=== PATIENT | female | born 1945 | race Caucasian/White ===

== ENCOUNTER → 2017-12-21 15:33 | Outpatient (CLI) | payer MEDICARE, OTHER, SELFPAY | PROVIDERS: Family Provider Family Medicine; PCP Family Medicine; Visit Provider Otolaryngology Otolaryngology/Facial Plastic Surgery | DX: J32.9 Chronic sinusitis, unspecified (principal) | CPT/HCPCS: 87070; 87205 ==

== ENCOUNTER → 2018-01-05 09:58 | Outpatient (CLI) | payer MEDICARE, OTHER, SELFPAY ==
[2018-01-05 12:25] LABS: Absolute Lymphocyte Count 1.41 X10^3/ul (0.83-4.51); Absolute Neutrophil Count 3.6 X10^3/uL (2.0-7.7); Basophil# 0.02 X10^3/uL; Basophil% 0.3 % (0-1); Eosinophil# 0.16 X10^3/uL; Eosinophils% 2.8 % (0-5); Hematocrit 40.3 % (37-47); Hemoglobin 12.8 g/dl (12.0-15.0); Lymphocyte # 1.41 X10^3/ul (4.0); Lymphocyte % 24.7 % (19-41); Mean Corp Hgb Conc 31.8 g/gl (32-36); Mean Corpuscular Hgb 31.3 pg (27.0-32.0); Mean Corpuscular Volume 98.5 fL (81-99); Mean Platelet Vol. 11.3 fl (6.2-12.0); Monocyte# 0.51 X10^3/uL; Monocyte% 8.9 % (0-10); Neutrophil # 3.61 X10^3/uL (2.7-7.7); Neutrophil % 63.1 % (47-70); Platelet Count 200 K/mm3 (150-450); RBC Distribution Width CV 14.3 % (11.6-14.6); RBC Distribution Width SD 51.5 fl (35.1-43.9); Red Blood Count 4.09 M/mm3 (4.2-5.4); White Blood Count 5.7 K/mm3 (4.4-11.0)
[2018-01-05 12:36] LABS: POSITIVE COUNT NO; POSITIVE DIFFERENTIAL NO; POSITIVE MORPHOLOGY NO
[2018-01-05 12:37] LABS: Vitamin B12 982 pg/mL (211-911); Vitamin D,25 Hydroxy 62.5 ng/mL (29.95-100.01)
[2018-01-05 12:38] LABS: ALB/GLOB Ratio 0.9 RATIO (0.9-2.4); AST(SGOT) 23 U/L (15-37); Alanine Aminotransfer ALT/SGPT 29 U/L (13-56); Albumin, Serum 3.4 g/dL (3.2-5.0); Alkaline Phosphatase 53 U/L (45-117); Anion Gap 3 (5-15); BUN 25 mg/dL (7-18); Calcium,Total 8.5 mg/dL (8.5-10.1); Chloride 106 mmol/L (98-107); Cholesterol 222 mg/dL (200); Creatinine, Serum 0.72 mg/dL (0.55-1.02); EST Glomerular Filtration Rate 85 mL/min (>60); Est Glom Filt Rate - Afr Amer 103 mL/min (>60); Ferritin 21 ng/mL (8-252); Globulin 3.7 g/dL (2.2-4.2); Glucose 84 mg/dL (74-106); High Density Lipoprotein 117 mg/dL; Iron 122 ug/dL (50-170); Potassium 3.6 mmol/L (3.5-5.1); Protein, Total 7.1 g/dL (6.4-8.2); Sodium Level 141 mmol/L (136-145); Thyroid Stim Hormone (TSH) 6.46 uIU/mL (0.358-3.74); Triglycerides 58 mg/dL; Very Low Density Lipoprotein 12 mg/dL (5-40)
== END ==
PROVIDERS: Family Provider Family Medicine; PCP Family Medicine; Visit Provider Internal Medicine Cardiovascular Disease
DX: I10 Essential (primary) hypertension (principal); D50.9 Iron deficiency anemia, unspecified; E55.9 Vitamin D deficiency, unspecified; E78.5 Hyperlipidemia, unspecified; Z79.899 Other long term (current) drug therapy
CPT/HCPCS: 80053; 80061; 82306; 82607; 82728; 83540; 84443; 85025

== ENCOUNTER → 2018-03-08 09:19 | Outpatient (CLI) | payer MEDICARE, OTHER, SELFPAY ==
[2018-03-08 12:43] LABS: T4 Free Direct 1.03 ng/dL (0.76-1.46)
== END ==
PROVIDERS: Family Provider Family Medicine; PCP Family Medicine; Visit Provider Family Medicine
DX: E03.9 Hypothyroidism, unspecified (principal)
CPT/HCPCS: 36415; 84439; 84443

== ENCOUNTER → 2018-04-19 11:22 | Outpatient (CLI) | payer MEDICARE, OTHER, SELFPAY ==
[2018-04-19 15:39] LABS: T4 Free Direct 0.96 ng/dL (0.76-1.46); Thyroid Stim Hormone (TSH) 5.17 uIU/mL (0.358-3.74)
== END ==
PROVIDERS: Family Provider Family Medicine; PCP Family Medicine; Visit Provider Family Medicine
DX: E03.9 Hypothyroidism, unspecified (principal)
CPT/HCPCS: 36415; 84439; 84443

== ENCOUNTER → 2018-05-27 09:34 | Outpatient (CLI) | payer MEDICARE, OTHER, SELFPAY ==
--- NOTE | 2018-05-27 09:45 | ECHOD_ITS ---
Reason For Study: Valve eval, prior [place]. Procedure This was a 2D Doppler, Color Flow transthoracic echocardiogram. Exam performed in department. Left Ventricle Normal size and thickness. The estimated ejection fraction is 65 %. Stage 1 diastolic dysfunction. No regional wall motion abnormalities noted. Right Ventricle Normal size and thickness. Normal systolic function. Atria Normal left atrium. Normal right atrium. Normal atrial septum. Mitral Valve The mitral valve is structurally normal. No prolapse or stenosis seen. Trivial mitral valve insufficiency. Tricuspid Valve Normal tricuspid valve. Mild (1+) tricuspid valve insufficiency. Right ventricular systolic pressure estimated to be 32 mmHg. Aortic Valve Trisinus/trileaflet aortic valve. Normal aortic valve. Pulmonic Valve Normal pulmonic valve. Mild (1+) pulmonic valve insufficiency. Great Vessels Normal aortic root. Normal arch. Normal inferior vena cava. Inferior vena cava collapse with sniff. Pericardium/Pleural No pericardial effusion. MMode/2D Measurements & Calculations LVIDd: 4.5 cm IVSd: 0.95 cm Ao root diam: 2.8 cm LVIDs: 3.1 cm LVPWd: 0.82 cm LA dimension: 3.2 cm RVDd: 3.1 cm FS: 31.0 % LAV(MOD-bp): 47.4 ml LA A4 area: 14.3 cm2 RA A4 area: 12.0 cm2 LAV(MOD-bp) Indexed: 30.8 ml/m2 LAV(MOD-sp2): 49.7 ml LAV(MOD-sp4): 38.6 ml Doppler Measurements & Calculations MV E max kar: 89.9 cm/sec Lat Peak E' Kar: 6.8 cm/sec Med Peak E' Kar: 7.0 cm/sec MV A max kar: 98.5 cm/sec E/E' lat: 13.3 E/E' med: 12.9 MV E/A: 0.91 Ao V2 max: 159.5 cm/sec AI max kar: 482.5 cm/sec LV V1 max: 93.5 cm/sec Ao max P.2 mmHg AI max P.2 mmHg LV V1 max P.5 mmHg AI dec slope: 227.4 cm/sec2 AI P1/2t: 621.3 msec PA V2 max: 107.4 cm/sec PI end-d kar: 122.5 cm/sec TR max kar: 232.5 cm/sec TR max P.8 mmHg Interpretation Summary The estimated ejection fraction is 65 %. Stage 1 diastolic dysfunction. Trivial mitral valve insufficiency. Mild (1+) tricuspid valve insufficiency. Right ventricular systolic pressure estimated to be 32 mmHg. In comparison to echo report dated 04/27/2017, LV function has improved from 55% to 65%. Ordering Physician: Pablo Starks Referring Physician: Sen Verduzco Performed By: Wendy Tijerina RDCS, RVT
== END ==
PROVIDERS: Family Provider Family Medicine; PCP Family Medicine; Visit Provider Internal Medicine Cardiovascular Disease
DX: I25.2 Old myocardial infarction (principal)
CPT/HCPCS: 93306

== ENCOUNTER → 2018-12-08 09:25 | Outpatient (CLI) | payer MEDICARE, OTHER, SELFPAY ==
[2018-12-05 14:34] VITALS: BMI 22.3
[2018-12-08 11:47] LABS: AST(SGOT) 15 U/L (15-37); Alanine Aminotransfer ALT/SGPT 15 U/L (13-56); Albumin, Serum 3.4 g/dL (3.2-5.0); Alkaline Phosphatase 59 U/L (45-117); Bilirubin, Direct 0.24 mg/dL (0.00-0.30); Cholesterol 193 mg/dL (200); Globulin 3.8 g/dL (2.2-4.2); High Density Lipoprotein 100 mg/dL; Protein, Total 7.2 g/dL (6.4-8.2); Triglycerides 81 mg/dL; Very Low Density Lipoprotein 16 mg/dL (5-40)
== END ==
LOC: LABSPEC 09:29 → LAB 09:30
PROVIDERS: Family Provider Family Medicine; PCP Family Medicine; Referring Provider Internal Medicine Cardiovascular Disease; Visit Provider Internal Medicine Cardiovascular Disease
DX: E78.5 Hyperlipidemia, unspecified (principal); I25.10 Atherosclerotic heart disease of native coronary artery without angina pectoris
CPT/HCPCS: 36415; 80061; 80076

== ENCOUNTER → 2019-01-06 08:56 | Outpatient (CLI) | payer MEDICARE, OTHER, SELFPAY ==
[2018-12-05 14:34] VITALS: BMI 22.3
[2019-01-06 13:01] LABS: Absolute Lymphocyte Count 1.88 X10^3/ul (0.83-4.51); Absolute Neutrophil Count 3.5 X10^3/uL (2.0-7.7); Basophil# 0.04 X10^3/uL; Basophil% 0.6 % (0-1); Eosinophil# 0.21 X10^3/uL; Eosinophils% 3.3 % (0-5); Hematocrit 40.5 % (37-47); Hemoglobin 13.1 g/dl (12.0-15.0); Lymphocyte # 1.88 X10^3/ul (4.0); Lymphocyte % 29.6 % (19-41); Mean Corp Hgb Conc 32.3 g/gl (32-36); Mean Corpuscular Hgb 31.3 pg (27.0-32.0); Mean Corpuscular Volume 96.7 fL (81-99); Mean Platelet Vol. 11.2 fl (6.2-12.0); Monocyte# 0.68 X10^3/uL; Monocyte% 10.7 % (0-10); Neutrophil # 3.53 X10^3/uL (2.7-7.7); Neutrophil % 55.5 % (47-70); Platelet Count 222 K/mm3 (150-450); RBC Distribution Width CV 13.9 % (11.6-14.6); RBC Distribution Width SD 49.2 fl (35.1-43.9); Red Blood Count 4.19 M/mm3 (4.2-5.4); White Blood Count 6.4 K/mm3 (4.4-11.0)
[2019-01-06 13:02] LABS: POSITIVE COUNT NO; POSITIVE DIFFERENTIAL NO; POSITIVE MORPHOLOGY NO
[2019-01-06 13:13] LABS: Vitamin D,25 Hydroxy 56.8 ng/mL (29.95-100.01)
[2019-01-06 13:17] LABS: Anion Gap 4 (5-15); BUN 26 mg/dL (7-18); Chloride 107 mmol/L (98-107); Creatinine, Serum 0.81 mg/dL (0.55-1.02); EST Glomerular Filtration Rate 73 mL/min (>60); Est Glom Filt Rate - Afr Amer 89 mL/min (>60); Glucose 79 mg/dL (74-106); Potassium 3.9 mmol/L (3.5-5.1); Sodium Level 141 mmol/L (136-145); T4 Free Direct 0.97 ng/dL (0.76-1.46); Thyroid Stim Hormone (TSH) 5.82 uIU/mL (0.358-3.74)
== END ==
PROVIDERS: Family Provider Family Medicine; PCP Family Medicine; Visit Provider Family Medicine
DX: E03.9 Hypothyroidism, unspecified (principal); E55.9 Vitamin D deficiency, unspecified; D50.9 Iron deficiency anemia, unspecified; I10 Essential (primary) hypertension
CPT/HCPCS: 36415; 80048; 82306; 84439; 84443; 85025

== ENCOUNTER → 2019-01-09 12:34 | Outpatient (CLI) | payer MEDICARE, OTHER, SELFPAY ==
[2018-12-05 14:34] VITALS: BMI 22.3
--- NOTE | 2019-01-09 12:35 | STE_ITS ---
Reason For Study: CAD/ASHD Stress Results Protocol: Ren Protocol Maximum Predicted HR: 146 bpm Target HR: 124 bpm % Maximum Predicted HR: 101 % DurationHeart Rate Stage (mm:ss) (bpm) BP Comment BASELINE 80 142/82 STAGE 1 3:00 120 160/60 STAGE 2 3:00 136 192/74 STAGE 3 1:00 148 / INCREASED SOB RECOVERY 99 148/68 Stress Duration: 7:00 mm:ss Maximum Stress HR: 148 bpm Baseline Echocardiogram Findings The estimated ejection fraction is 65 %. Stress Echo Wall motion Data Resting WM Intermediate WM Stress WM Resting Wall Motion Wall Motion Stress No regional wall motion No regional wall motion abnormalities noted. abnormalities noted. EKG Data The baseline ECG displays normal sinus rhythm. The patient exercised according to the regular Ren protocol for a total duration of 7:00. The maximum heart rate attained was 148 beats per minute. This was 101% of maximum predicted heart rate. The patient exercised into stage 3 of the Ren protocol. During stress, there were no ST or T wave changes noted to suggest ischemia. No clinical angina was noted. Interpretation Summary The estimated ejection fraction is 65 %. Normal, adequate, treadmill echocardiogram. Negative for ischemia by EKG and echocardiographic criteria. No anginal symptoms noted. Frequent PVCs noted. Average exercise capacity for age. Hypertensive blood pressure response to exercise. Test terminated due to attainment of target heart rate and dyspnea. Final LVEF is 75%. No complications. Ordering Physician: Pablo Starks MD Referring Physician: Pablo Starks Performed By: Cheryl Kaur RDCS
== END ==
PROVIDERS: Family Provider Family Medicine; PCP Family Medicine; Referring Provider Internal Medicine Cardiovascular Disease; Visit Provider Internal Medicine Cardiovascular Disease
DX: I25.10 Atherosclerotic heart disease of native coronary artery without angina pectoris (principal); E78.5 Hyperlipidemia, unspecified; I10 Essential (primary) hypertension; I25.2 Old myocardial infarction; I49.49 Other premature depolarization; Z95.5 Presence of coronary angioplasty implant and graft
CPT/HCPCS: 93017; 93350

== ENCOUNTER → 2019-05-20 | Outpatient (CLI) | payer MEDICARE, OTHER, SELFPAY ==
[2018-12-05 14:34] VITALS: BMI 22.3
[2019-05-20 10:45] LABS: AST(SGOT) 15 U/L (15-37); Alanine Aminotransfer ALT/SGPT 15 U/L (13-56); Albumin, Serum 3.3 g/dL (3.2-5.0); Alkaline Phosphatase 58 U/L (45-117); Bilirubin, Direct 0.23 mg/dL (0.00-0.30); Cholesterol 202 mg/dL (200); Globulin 3.6 g/dL (2.2-4.2); High Density Lipoprotein 109 mg/dL; Protein, Total 6.9 g/dL (6.4-8.2); Triglycerides 52 mg/dL; Very Low Density Lipoprotein 10 mg/dL (5-40)
== END | disposition home or self-care (01) ==
LOC: LAB 09:29
PROVIDERS: Physician Assistant Medical; Family Provider Family Medicine; PCP Family Medicine; Referring Provider Internal Medicine Cardiovascular Disease; Visit Provider Internal Medicine Cardiovascular Disease
DX: E78.5 Hyperlipidemia, unspecified (principal)
CPT/HCPCS: 36415; 80061; 80076

== ENCOUNTER → 2019-05-31 | Outpatient (CLI) | payer MEDICARE, OTHER, SELFPAY ==
[2019-05-31 10:49] VITALS: BMI 22.3
--- NOTE | 2019-05-31 10:55 | RAD_ITS ---
STUDY: X-RAY - PELVIS AND LEFT HIP REASON FOR EXAM: Female, 73 years old. Increasing left hip, knee pain, lower back pain. TECHNIQUE: 3 views of the pelvis and hip. COMPARISON: None. FINDINGS: Low lumbar spondylosis. Mild symmetric degenerative features of the SI joints. Osteopenia. Right hip, moderate joint margin osteophytic lipping, mild joint space narrowing, mild sclerosis of the superior acetabular articular surface. Left hip, moderate joint margin osteophytic lipping, mild joint space narrowing, with more prominent sclerosis of the superior acetabular articular surface as compared to the right hip. RAD/HIP, UNI W/ Pelvis 2-3 Views IMPRESSION: Moderate degenerative features of the hip joints bilaterally somewhat greater on the left. Electronically Signed: Florin Lopez MD at 11:48 EDT Tel , Service support ,
--- NOTE | 2019-05-31 10:55 | RAD_ITS ---
STUDY: X-RAY - LEFT KNEE REASON FOR EXAM: Female, 73 years old. Increasing left hip and knee pain, and lower back pain TECHNIQUE: 4 view(s) of the knee. COMPARISON: None. FINDINGS: Small suprapatellar knee joint effusion. Periarticular soft tissues unremarkable. Osteopenia. Patellofemoral compartment moderate joint margin osteophytic lipping. Medial compartment, severe joint space narrowing, [id number] articulation, blunting of the articular surfaces, sclerosis of the articular surfaces, prominent joint margin osteophytic lipping. Lateral compartment mild joint margin osteophytic lipping without joint space narrowing. RAD/Knee 4 or More Views IMPRESSION: Tricompartmental DJD, severe of the medial compartment. Small effusion. Electronically Signed: Florin Lopez MD at 11:40 EDT Tel , Service support ,
--- NOTE | 2019-05-31 10:55 | RAD_ITS ---
STUDY: X-RAY - LUMBAR SPINE REASON FOR EXAM: Female, 73 years old. Increasing left hip and knee pain and lower back pain TECHNIQUE: 5 view(s) of the lumbar spine were obtained. COMPARISON: None FINDINGS: Lung bases clear, mild cardiomegaly. No acute intra-abdominal process is evident. S-shaped scoliotic curvature of the thoracolumbar spine. Preserved lordosis. Normal vertebral body height and alignment. Mild disc narrowing L1-L2, L2-L3. Moderate disc narrowing with mild endplate degenerative changes L3-L4. Mild disc narrowing L4-L5. Mild to moderate multilevel facet arthropathy/hypertrophy most prominent at L2-L3, L3-L4, L4-L5. RAD/L/S Spine Min 4 Views IMPRESSION: Scoliosis, multilevel spondylosis. Electronically Signed: Florin Lopez MD at 11:46 EDT Tel , Service support ,
== END | disposition home or self-care (01) ==
LOC: HPRAD 10:55
PROVIDERS: Family Provider Family Medicine; PCP Family Medicine; Referring Provider Orthopaedic Surgery; Visit Provider Orthopaedic Surgery
DX: M25.562 Pain in left knee (principal); M25.552 Pain in left hip; R20.0 Anesthesia of skin
CPT/HCPCS: 72110; 73502; 73564

== ENCOUNTER 2019-07-18 05:28 | Observation (INO) | payer MEDICARE, OTHER, SELFPAY ==
[2019-05-31 10:49] VITALS: BMI 22.3
[2019-07-11 09:26] VITALS: BP 153/88; PULSE 71; RESP 16; TEMP 36.8; O2SAT 100; BMI 21.4
--- NOTE | 2019-07-11 09:33 | SDCEKG_ITS ---
Test Reason : Blood Pressure : / mmHG Vent. Rate : 075 BPM Atrial Rate : 075 BPM P-R Int : 208 ms QRS Dur : 094 ms QT Int : 402 ms P-R-T Axes : 032 -19 023 degrees QTc Int : 448 ms Sinus rhythm with occasional and consecutive Premature ventricular complexes Septal infarct , age undeterined Abnormal ECG Confirmed by LEO TRACY, DEBBY ([id number]), video editor BERNA TRIANA ([id number]) on 07/19/2019 12:02:07 PM Referred By: Estrada Wilkinson Confirmed By:DEBBY BAILEY MD
[2019-07-11 09:52] LABS: Hematocrit 41.5 % (37-47); Hemoglobin 13.3 g/dL (12.0-15.0); Mean Corpuscular Hgb 31.1 pg (27.0-32.0); Mean Corpuscular Volume 97.2 fL (81-99); Mean Platelet Vol. 10.7 fl (6.2-12.0); Platelet Count 192 K/mm3 (150-450); RBC Distribution Width CV 13.6 % (11.6-14.6); RBC Distribution Width SD 48.4 fl (35.1-43.9); Red Blood Count 4.27 M/mm3 (4.2-5.4); White Blood Count 5.6 K/mm3 (4.4-11.0)
[2019-07-11 10:32] LABS: Anion Gap 6 (5-15); BUN 27 mg/dL (7-18); Calcium,Total 9.2 mg/dL (8.5-10.1); Chloride 107 mmol/L (98-107); Creatinine, Serum 0.77 mg/dL (0.55-1.02); EST Glomerular Filtration Rate 78 mL/min (>60); Est Glom Filt Rate - Afr Amer 94 mL/min (>60); Estimated Creatinine Clearance 37.24 ml/min; Glucose 100 mg/dL (74-106); Potassium 3.8 mmol/L (3.5-5.1); Sodium Level 143 mmol/L (136-145)
--- NOTE | 2019-07-13 13:13 | CASEMGMT ---
Attempted to contact patient to discuss discharge needs after upcoming surgery. No answer, voicemail left asking for a return call. Jacqueline Burton LPN Clinical Support
--- NOTE | 2019-07-14 10:16 | CASEMGMT ---
Patient returned phone call. Patient plans to return home after surgery and will have assistance at home. Reports that [facility] will come in for 5-10 days to offer assistance, patient reports is utilizing [facility] [employer] insurance for this service. Patient has outpatient PT set up at [facility] for 07/20/19 and spouse will assist with transportation. Patient has a walker, has canes and wheelchair also. There is a bedroom and bathroom on the 1st level of the home and there are 2 steps to enter home. Informed patient that RN-CM will likely follow up after surgery to further assist with discharge planning. Jacqueline Burton LPN Clinical Support
[2019-07-17 14:20] VITALS: BMI 20.8
[2019-07-18] VITALS (16 sets, daily range): BP systolic 99–135; BP diastolic 52–74; PULSE 73–86; RESP 14–18; TEMP 36.1–37.6; O2SAT 96–100; BMI 21.4
[2019-07-18] MEDS: Gabapentin 600 MG Tablet PO (06:06)
[2019-07-18] MEDS: Scopolamine 1mg/72hr Patch 1 PATCH TRANSDERM. (06:06)
[2019-07-18] MEDS: Acetaminophen 500 MG Tablet 1000 MG PO ×3 (06:06→21:40)
[2019-07-18] MEDS: Celecoxib 200 MG Capsule 400 MG PO (06:07)
[2019-07-18 06:35] LABS: Bedside Glucose 120 mg/dL (70-110)
[2019-07-18] MEDS: Lactated Ringers 1,000 ML 100 ML IV (06:35)
[2019-07-18] MEDS: Magnesium Sulfate 4gm/100mL 4 GM/100 ML IV.SOLN. IV (06:36)
--- NOTE | 2019-07-18 07:19 | PCM.HP.BLA ---
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) Atherosclerosis of coronary artery of [place] heart without angina pectoris (Chronic) Multiple premature ventricular complexes (Chronic) Hyperlipidemia (Chronic) Arthropathy of left knee (Chronic) Arthropathy of right knee (Chronic) Arthropathy of right shoulder (Chronic) Osteoarthritis (Chronic) Hypertension (Inactive) Surgical History (Updated 03/16/18 @ 11:54 by Noy Valenzuela) History of coronary artery stent placement (Chronic 06/04/14) History of tonsillectomy (Chronic) Family History (Updated 03/16/18 @ 11:55 by Noy Valenzuela) Father CAD (coronary artery disease) Myocardial infarction CVA (cerebral vascular accident) Brother CAD (coronary artery disease) Social History (Updated 07/03/19 @ 11:33 by Estrada Wilkinson DO) Smoking Status: Never smoker HPI left knee: Details: Parts of this documentation were recorded by a scribe, this documentation accurately reflects the service provided and the decisions made by me, Estrada Wilkinson DO 07/03/19 0754. GÓMEZ MOREL is a 73 year old F here today for iovera for left knee. Patient notes that she continues to have knee pain and stiffness. She has pain with ambulation. Denies numbness, tingling or other associated symptoms. ROS Const Reports system reviewed and no additional complaints, except as docu Eyes Reports system reviewed and no additional complaints, except as docu ENT Reports system reviewed and no additional complaints, except as docu Card Reports system reviewed and no additional complaints, except as docu Resp Reports system reviewed and no additional complaints, except as docu GI Reports system reviewed and no additional complaints, except as docu Musc Reports joint pain, Reports stiffness Skin/Breast Reports system reviewed and no additional complaints, except as docu Neuro Yes system reviewed and no additional complaints, except as docu Psych Reports system reviewed and no additional complaints, except as docu Endo Reports system reviewed and no additional complaints, except as docu Bc/Lymph Reports system reviewed and no additional complaints, except as docu Aller/Immun Reports system reviewed and no additional complaints, except as docu Office Procedures Iovera Details:: No prior auth needed. Preoperative diagnosis : Postoperative diagnosis: Same Procedure: Cryotherapy with Iovera device to anterior femoral cutaneous nerve and 2 branches of the infrapatellar saphenous nerve III nerves in total Description of procedure: Patient was brought back to the procedure room the operative extremity was identified by both patient and physician. The PIP flexion crease was measured to the midpoint of the patella and this distance was divided in 3 resulting in 10 cm location proximal to the midpoint of the patella. This line was extended medial and lateral to the extent of the edges of the patella. This was our treatment line for the anterior femoral cutaneous nerve. A second treatment line was made 5 cm medial to the inferior pole of the patella and 5 cm distally. The leg was prepped with alcohol and Betadine. Lidocaine with epi was used along the treatment lines. Using the Iovera device treatment lines were treated with 1 minute cycles. Reproduction of paresthesias was monitored in the area of nerve distribution. Once all 3 nerves were treated across the 2 treatment lines patient was cleaned and a light dressing with 4 x 4 and Armando wrap was applied. Patient tolerated the procedure without complication. Supplemental Info 05/31/2019 x-ray left hip: mild to moderate spurring 05/31/2019 x-ray left knee: [id number] medial compartment with varus deformity 05/31/2019 x-ray lumbar spine: degenerative scoliosis Assessment & Plan Problems 1. Chronic pain of left knee M25.562; G89.29 Plan Spoke with the patient about a total knee replacement, and the surgery procedure and post op care. Our office will contact marriage and family social worker at the hospital to assist with post op home care due to husbands health issues. Patient signed surgery consent. Follow up for 2 week post op or sooner if pain, swelling, numbness or associated symptoms, or concerns develop. All questions answered. Patient in agreement of plan. Orders Orders: Iovera Today M25.569 Coding Level of Care Code Attention Sofia Diagnoses Chronic pain of left knee M25.562; G89.29 ??Chronicity: chronic I have re-examined the patient. There are no clinical changes since date of exam
[2019-07-18] MEDS: Cefazolin 2 GM in 0.9% Normal Saline 100 ML IV (07:30)
[2019-07-18] MEDS: dexAMETHasone 10 MG/ML Vial IV (08:07)
[2019-07-18] MEDS: Betamethasone/Betamethasone 30 MG/5 ML Vial (09:18)
[2019-07-18] MEDS: Bupivacaine Mpf 0.5% 30 ML VIAL (09:19)
--- NOTE | 2019-07-18 10:01 | OP.PCM_ITS ---
Report of Operation Date of Procedure: 07/18/19 Description of Surgical Findings:: Preoperative diagnosis: Left knee DJD Postoperative diagnosis: Same Procedure: Left total knee arthroplasty Implant: [place] triathlon cemented left femoral component size 2, cemented tibial baseplate size 3, cemented asymmetric patella size 9, polyethylene X3 size 9 CS Anesthesia: Spinal with adductor canal block Tourniquet time: 82 minutes at 300 mmHg Complications: None Condition: Stable to PACU Estimated blood loss: 25 cc Indication for procedure: This is a 3-year-old female with long standing degenerative joint disease of the knee who has failed conservative treatment and wished to proceed with elective total knee arthroplasty. Risk benefits and alternatives were reviewed including; risk of bleeding, infection, nerve artery and tissue damage, continued pain, postoperative stiffness, venous thromboembolism, need for postoperative rehabilitation, mechanical feel to the knee, and expected postoperative course. Procedure: The patient was met in the preoperative holding area. The operative extremity was identified by both patient and physician and was marked. Patient was met by anesthesia. An adductor canal block was placed by anesthesia postoperatively the patient was brought back to the operating room on a wheeled cart and transferred to the operating table in the supine position. Anesthesia was started. A well-padded tourniquet was placed on the operative extremity. The patient was prepped and draped in the usual sterile fashion. A timeout was called to ensure the proper patient procedure and extremity were being contemplated. An Esmarch was used to exsanguinate the extremity. The tourni quet was inflated. A 10 blade scalpel was used to make a midline incision down through the skin and subcutaneous tissue. Skin retractors placed. Bovie was used to perform meticulous hemostasis. full-thickness flaps were elevated medial and lateral along the joint capsule. A deep blade scalpel was used to perform a medial parapatellar arthrotomy. The knee was brought to full extension. A Bovi e was used to release the soft tissues off the most proximal aspect of the medial tibial plateau a three-quarter inch curved osteotome was also used for this process. The infrapatellar fat pad was excised. The fat pad was excised partially anterior lateral portion the anterior medial was elevated from the femur. the patella was everted. The knee was brought into flexion. An intramedullary drill was used followed by flexible intramedullary guide mikayla. The distal femoral cutting block was placed and set to remove 10 mm of bone and 5 degrees of valgus. The block was secured with pins and an oscillating saw was used to complete the distal femoral cut. During this, and all bony cuts retractors were used to protect the collateral ligaments. At this point a femoral sizer was used to measure the AP dimension of the femur. The sizer block was pinned parallel to the epicondylar access for external rotation. The sizing block was removed and the appropriately sized 4-in-1 cutting block was placed over the previously made pinholes. It was checked with an beronica wing and the block was secured with pins. An oscillating saw was used to complete the anterior cut followed by the posterior cut followed by the posterior chamfer cut followed by the anterior chamfer cut. The block was removed as well as the fragments. A ronguer was used to remove excess osteophytes. The medial and lateral meniscus were excised as well as the ACL. At this point a PCL retractor was placed and an intramedullary drill was passed down the tibial canal followed by a solid intramedullary guide mikayla. The tibial cutting block was attached and set to remove 9 mm of bone from the high side. This was checked with an external alignment drop mikayla for slope and tilt. It was pinned into place. An oscillating saw was used to complete the tibial plateau cut and the block was removed. A large osteotome was used to elevate the fragment and a Josseline and a Bovie were used to free the fragment from the surrounding soft tissue. A rongeur was once again used to remove osteophytes a lamina magnetic prospecting operator was used to evaluate the posterior capsular structures. A three-quarter inch curved osteotome was used to remove posterior osteophytes. A spacer block was inserted in both extension and flexion to ensure adequate spacing. Trials were inserted full extension and flexion were achieved in varus and valgus stability throughout range of motion were seen, balancing techniques were performed. At this point the attention was turned towards the patella. A caliper was used to ensure sufficient bone stock to remove 10 mm of bone. A reamer was used to perform this task. Lug holes were made for the appropriate-sized patella. The patella trial was inserted and there was good patellar tracking with knee range of motion. The tibial baseplate was allowed to float into rotation and was marked on the tibial plateau with a Emily. Lug holes were made in the femur and trials were removed. The tibial baseplate was then sized and its preparation was completed with a fin punch. The knee was thoroughly irrigated. A posterior capsular injection was performed with our standard cocktail. The knee was brought into flexion and irrigated again. The tibial baseplate was cemented. Excess cement was removed with curettes. The polyethylene component was inserted. The femoral component was cemented. The knee was brought into full extension and placed on a bump. The patellar component was cemented. At this point a Betadine rinse was placed and thoroughly irrigated after a few minutes. This was followed by an Iricept rinse which was allowed to sit for 1 minute and then thoroughly irrigated.At this point all gloves were changed. The knee was thoroughly irrigated the joint capsule was closed with #1 Ethibond. Tourniquet was let down followed by 0 Vicryl and 2-0 Vicryl in the subcutaneous tissues. followed by buffy in the skin. Dressing was applied in the form of Mepilex silver dressing web roll and an Armando wrap from the foot to the groin. The patient tolerated the procedure well, all counts were correct patient was brought back to the PACU in stable condition.
--- NOTE | 2019-07-18 10:56 | RAD_ITS ---
STUDY: X-RAY - LEFT KNEE REASON FOR EXAM: Female, 73 years old. Total knee replacement. TECHNIQUE: AP and lateral view(s) of the knee. COMPARISON: None. FINDINGS: Normal visualized distal femur. Normal visualized proximal tibia and fibula. Normal proximal tibiofibular articulation. The patient is status post total knee replacement. There is good alignment. Postoperative soft tissue changes. RAD/Knee 1 or 2 Views IMPRESSION: Status post total knee replacement. There is good alignment. Postoperative soft tissue changes. Electronically Signed: Alexsander Maloney, at 14:41 EDT , Service support ,
[2019-07-18] MEDS: Cefazolin 1 GM/50 ML BAG IV ×2 (12:34→21:35)
[2019-07-18] MEDS: Lactated Ringers 1,000 ML 125 ML IV (14:16)
--- NOTE | 2019-07-18 18:03 | NURSING ---
pt reports that scop patch was removed in PACU prior to coming to [facility] per her request. States in past she had an issue with patch for motion sickness and that she would prefer to go without.
[2019-07-18] MEDS: Celecoxib 200 MG Capsule PO (21:38)
[2019-07-18] MEDS: Atorvastatin Calcium 40 MG Tablet PO (21:38)
[2019-07-18] MEDS: Senna/Docusate Sodium 1 Tablet 2 TABLET PO (21:39)
[2019-07-18] MEDS: Metoprolol Tartrate 25 MG Tablet PO (21:41)
[2019-07-19] MEDS: Lactated Ringers 1,000 ML 15 ML IV (00:44)
[2019-07-19 02:00] VITALS: BP 157/82; PULSE 75; RESP 16; TEMP 37.3; O2SAT 98
[2019-07-19 05:33] LABS: Hematocrit 35.9 % (37-47); Hemoglobin 11.5 g/dL (12.0-15.0); Mean Corpuscular Hgb 31.4 pg (27.0-32.0); Mean Corpuscular Volume 98.1 fL (81-99); Mean Platelet Vol. 11.1 fl (6.2-12.0); Platelet Count 177 K/mm3 (150-450); RBC Distribution Width CV 13.3 % (11.6-14.6); RBC Distribution Width SD 48.1 fl (35.1-43.9); Red Blood Count 3.66 M/mm3 (4.2-5.4); White Blood Count 14.5 K/mm3 (4.4-11.0)
[2019-07-19] MEDS: Cefazolin 1 GM/50 ML BAG IV (05:47)
[2019-07-19] MEDS: Acetaminophen 500 MG Tablet 1000 MG PO (05:48)
[2019-07-19 05:53] LABS: Anion Gap 7 (5-15); BUN 18 mg/dL (7-18); BUN/Creat Ratio 22.6 RATIO (10-20); Calcium,Total 8.3 mg/dL (8.5-10.1); Chloride 112 mmol/L (98-107); EST Glomerular Filtration Rate 75 mL/min (>60); Est Glom Filt Rate - Afr Amer 91 mL/min (>60); Estimated Creatinine Clearance 46.56 ml/min; Glucose 118 mg/dL (74-106); Sodium Level 146 mmol/L (136-145)
[2019-07-19] MEDS: 0.9% NaCl Peripheral Flush Adult/Peds IV (07:28)
[2019-07-19 09:04] VITALS: BP 140/68; PULSE 72; RESP 18; TEMP 36.6; O2SAT 99
[2019-07-19] MEDS: APIXABAN 2.5 MG TABLET PO (09:07)
[2019-07-19 09:08] VITALS: BP 140/68; PULSE 72
[2019-07-19] MEDS: Metoprolol Tartrate 25 MG Tablet PO (09:08)
[2019-07-19] MEDS: Multivitamins,Therapeutic Tablet 1 TABLET PO (09:08)
[2019-07-19] MEDS: Celecoxib 200 MG Capsule PO (09:08)
[2019-07-19] MEDS: amLODIPine 5 MG Tablet PO (09:08)
[2019-07-19] MEDS: Senna/Docusate Sodium 1 Tablet 2 TABLET PO (09:09)
--- NOTE | 2019-07-19 10:12 | CASEMGMT ---
LW/Medical POA forms are not on file. SW let pt know and asked her to bring them in after discharge as able. Pt states understanding. [facility]
--- NOTE | 2019-07-19 10:33 | CASEMGMT ---
RN CM Assessment Introduced role of RN CM to patient and patient at bedside.? Patient is alert, oriented and able?to participate in RN CM Assessment. ?Care providers, pharmacy, and demographics verified. Met with patient and Iván at bedside, Patient sitting up in chair next to bed and appears anxious to be DC'd. Plan for patient to be Dc'd home today. Baseline Independent with ambulation and ADLs. Has HPOA and states it is her Iván Ashraf, PCP Dr Sen Verduzco, Specialist- Cardio- Dr Starks and [place]- Dr Wilkinson. States has DME- CPAP through [facility] in [place], Walker, ,Cane, Crutches, WC, Shower Chair, Stair lift from fully finished basement. States lives in a SS home with 2 steps to enter. Denies HHC/SNF. States both her and drive and denies transportation issues, Has Medication benefits. States that she has been ambulating here well and denies any issues, concerns, or questions regarding DC. States already set up through Dr Wilkinson and Outpatient PT with [facility]. [place] form explained and reviewed with patient regarding treatment for Arthroplasty and aware Outpatient billing will be determined by her Insurance Policy, Informed of continuous status review for any condition changes that may warrant a change to Inpatient status. Patient states understanding and denies any questions or concerns and [place] form signed. Signed copy placed in patient chart and patient provided a copy. JAMIL Lo
--- NOTE | 2019-07-19 12:13 | DCINST_ITS ---
Discharge Diet: No Restrictions Weight Bearing Status: Weight bearing as tolerated Call your doctor if you observe: Shortness of breath, Chest pain Additional Instructions: Ice and elevate next week while not ambulating. Encourage ambulation weightbearing as tolerated. Encourage FULL knee extension and flexion 1 time EVERY time you get up and down and MULTIPLE times per day. Begin showering postop day #3. Remove the dressing prior to shower gently wash with warm water and antibacterial soap then pat dry place ABD pad and ALAYNA hose over top. This is to be done daily. do not submerge for 3 weeks. If not showering daily must clean incision and change dressing daily. Do not allow animals near incision keep clean. Follow anticoagulation recommendations. Call Dr. Wilkinson with any concerns. Allergies/Adverse Reactions: Allergies No Known Allergies Allergy (Verified 07/12/19 20:34) Medications to take at Discharge Ipratropium [place] 0.06% [ATROVENT NASAL SPRAY] 1 spray NASAL BID PRN PRN 07/01/17 Lorazepam [Ativan] 0.5 mg PO DAILY PRN PRN 07/01/17 Aspirin E.C. [Ecotrin] 81 mg PO DAILY@0800 07/05/17 Multivitamin [Multiple Vitamins] 1 ea PO DAILY 07/05/17 amoxicillin 500 mg capsule 2 g PO .COMPLEX cap 05/13/18 cholecalciferol (vitamin D3) 5,000 unit capsule 5,000 unit PO QHS 12/05/18 Amlodipine [Norvasc] 5 mg PO DAILY 07/11/19 Atorvastatin Calcium [Lipitor] 40 mg PO QHS 07/11/19 Metoprolol Tartrate [Lopressor (beta ja)] 25 mg PO BID 07/11/19 Acetaminophen [Tylenol] 1,000 mg PO Q6H PRN #100 tab 07/19/19 Apixaban [Eliquis] 2.5 mg PO BID #28 tab 07/19/19 Oxycodone [Oxyir] 5 - 10 mg PO Q4H PRN PRN #60 tablet 07/19/19 The following prescriptions were given: Apixaban [Eliquis] 2.5 mg PO BID #28 tab Transmission Status: Pending to [id number] Oxycodone [Oxyir] 5 - 10 mg PO Q4H PRN PRN #60 tablet PRN Reason: Pain Score 4-10/10 Transmission Status: Sent to [id number] Acetaminophen [Tylenol] 1,000 mg PO Q6H PRN #100 tab Transmission Status: Pending to [facility] Primary Care Physician: Sen Verduzco MD [Primary Care Provider] - Test Results: Test results from this visit will be discussed in further detail at your follow- up appointment, if applicable. Please Follow Up With: Estrada Wilkinson DO - 2 weeks
--- NOTE | 2019-07-19 12:14 | PCM.DC.SUM ---
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 The patient has with long-standing history of knee DJD and has failed conservative treatment. Patient wished to undergo elective total knee arthroplasty and underwent the aforementioned procedure on the admission date without complications. patient did receive pre-and postoperative antibiotics which were discontinued within 23 hours postoperatively. patient did receive [a spinal anesthesia and a adductor canal block ]and the pain was controlled postoperatively with p.o. and IV pain medication. There was minimal intraoperative blood loss he did [receive 2 g of tranexamic acid ]and his vital signs and labs were stable postoperatively and patient [did not require a blood transfusion]. patient was seen by physical therapy and did progress with ambulation. Postoperatively was started on both mechanical and chemical DVT prophylaxis for which patient will continue [ Eliquis 2.5 mg twice daily] for 2 additional weeks post hospital discharge. Patient dressing was changed in the morning of postop day #1 without any concerning signs. Silverlon dressing will stay on for 72 hours postoperatively at which time patient will begin showering on postop day #3 with daily dressing changes. Encouraged patient to achieve full range of motion as soon as possible, Patient will receive home health care and home physical therapy and will follow-up in the office in 2 weeks for wound check. There is no intrahospital complications . - Physical Exam General: Alert, Oriented x3, Cooperative, No apparent distress Extremities: - - Compartment soft neurovascular intact no sign of infection Vital Signs Temp Pulse Resp BP Pulse Ox 97.9 F 72 18 140/68 H 99 07/19/19 09:04 07/19/19 09:08 07/19/19 09:04 07/19/19 09:08 07/19/19 09:04 Oxygen Flow Rate (L/min) 7 Oxygen Delivery Method Room Air Weight: 113 lb 12.136 oz Body Mass Index (BMI) 21.4 Intake and Output for Last 24 Hours 07/17/19 07/18/19 07/19/19 23:59 23:59 23:59 Intake Total 2967.50 / 3767.50 1288 / 1288 Output Total 400 / 800 950 / 950 Balance 2567.50 / 2967.50 338 / 338 Laboratory Tests Past 24 Hrs 07/19/19 07/19/19 05:08 05:08 WBC 14.5 H RBC 3.66 L Hgb 11.5 L Hct 35.9 L MCV 98.1 MCH 31.4 MCHC 32.0 RDW Std Deviation 48.1 H RDW Coeff of Cris 13.3 Plt Count 177 MPV 11.1 Sodium 146 H Potassium 4.0 Chloride 112 H Carbon Dioxide 27.0 Anion Gap 7 BUN 18 Creatinine 0.80 Estim Creat Clear Calc 46.56 Est GFR (MDRD) Af Amer 91 Est GFR (MDRD) Non-Af 75 BUN/Creatinine Ratio 22.6 H Glucose 118 H Calcium 8.3 L Discharge Diet: No Restrictions Weight Bearing Status: Weight bearing as tolerated Call your doctor if you observe: Shortness of breath, Chest pain Home Medications: Medications to take at Discharge Ipratropium Clarence 0.06% [ATROVENT NASAL SPRAY] 1 spray NASAL BID PRN PRN 07/01/17 Lorazepam [Ativan] 0.5 mg PO DAILY PRN PRN 07/01/17 Aspirin E.C. [Ecotrin] 81 mg PO DAILY@0800 07/05/17 Multivitamin [Multiple Vitamins] 1 ea PO DAILY 07/05/17 amoxicillin 500 mg capsule 2 g PO .COMPLEX cap 05/13/18 cholecalciferol (vitamin D3) 5,000 unit capsule 5,000 unit PO QHS 12/05/18 Amlodipine [Norvasc] 5 mg PO DAILY 07/11/19 Atorvastatin Calcium [Lipitor] 40 mg PO QHS 07/11/19 Metoprolol Tartrate [Lopressor (beta ja)] 25 mg PO BID 07/11/19 Acetaminophen [Tylenol] 1,000 mg PO Q6H PRN #100 tab 07/19/19 Apixaban [Eliquis] 2.5 mg PO BID #28 tab 07/19/19 Oxycodone [Oxyir] 5 - 10 mg PO Q4H PRN PRN #60 tablet 07/19/19 Following Prescrptions Were Given to Patient: Apixaban [Eliquis] 2.5 mg PO BID #28 tab Transmission Status: Pending to [id number] Oxycodone [Oxyir] 5 - 10 mg PO Q4H PRN PRN #60 tablet PRN Reason: Pain Score [id number] Transmission Status: Sent to [id number] Acetaminophen [Tylenol] 1,000 mg PO Q6H PRN #100 tab Transmission Status: Pending to [id number] Primary Care Physician: Sen Verduzco MD [Primary Care Provider] - Please Follow Up With: Estrada Wilkinson, DO - 2 weeks Additional Instructions: Ice and elevate next week while not ambulating. Encourage ambulation weightbearing as tolerated. Encourage FULL knee extension and flexion 1 time EVERY time you get up and down and MULTIPLE times per day. Begin showering postop day #3. Remove the dressing prior to shower gently wash with warm water and antibacterial soap then pat dry place ABD pad and ALAYNA hose over top. This is to be done daily. do not submerge for 3 weeks. If not showering daily must clean incision and change dressing daily. Do not allow animals near incision keep clean. Follow anticoagulation recommendations. Call Dr. Wilkinson with any concerns. Medical Necessity - Tobacco Use Smoking Status: Never smoker Tobacco Use: Non-smoker Meaningful Use Info Meaningful Use Diagnoses (Choose all that apply): None applicable
[2019-07-19 12:18] VITALS: BP 147/69; PULSE 67; RESP 16; TEMP 36.9; O2SAT 100
== END 2019-07-19 13:03 | disposition home or self-care (01) ==
LOC: ACINP 10:53 → MS3 10:54
PROVIDERS: Anesthesiology; Admitting Provider Orthopaedic Surgery; Family Provider Family Medicine; PCP Family Medicine; Referring Provider Orthopaedic Surgery; Visit Provider Orthopaedic Surgery
PROC: (CPT 27447; principal; 2019-07-18 07:05)
DX: M17.12 Unilateral primary osteoarthritis, left knee (principal); I10 Essential (primary) hypertension; G89.29 Other chronic pain; I25.10 Atherosclerotic heart disease of native coronary artery without angina pectoris; E78.5 Hyperlipidemia, unspecified; Z95.5 Presence of coronary angioplasty implant and graft; Z79.899 Other long term (current) drug therapy; Z79.82 Long term (current) use of aspirin; G47.30 Sleep apnea, unspecified; G25.81 Restless legs syndrome
CPT/HCPCS: 27447; 64447; 36415; 73560; 80048; 82962; 85027; 87081; 93005; 96361; 96365; 96366; 97110; 97116; 97162; 97166; 97530; 99218; C1776; J7120; A4216; G0378; G0379; J0702

== ENCOUNTER 2019-09-05 06:00 | Day surgery (SDC) | payer MEDICARE, OTHER, SELFPAY ==
[2019-08-28 10:04] VITALS: BMI 22.3
--- NOTE | 2019-09-04 09:00 | PCM.HP.BLA ---
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) Atherosclerosis of coronary artery of [place] heart without angina pectoris (Chronic) Multiple premature ventricular complexes (Chronic) Hyperlipidemia (Chronic) Arthropathy of left knee (Chronic) Arthropathy of right knee (Chronic) Arthropathy of right shoulder (Chronic) Osteoarthritis (Chronic) Hypertension (Inactive) Surgical History (Updated 03/16/18 @ 11:54 by Noy Valenzuela) History of coronary artery stent placement (Chronic 06/04/14) History of tonsillectomy (Chronic) Family History (Updated 03/16/18 @ 11:55 by Noy Valenzuela) Father CAD (coronary artery disease) Myocardial infarction CVA (cerebral vascular accident) Brother CAD (coronary artery disease) Social History (Updated 08/28/19 @ 10:47 by Estrada Wilkinson DO) Smoking Status: Never smoker HPI LEFT KNEE: Details: Parts of this documentation were recorded by a scribe, this documentation accurately reflects the service provided and the decisions made by me, Estrada Wilkinson DO 08/28/19 0757. GÓMEZ MOREL is a 73 year old F here today for 6 week post op from left TKA. Patient is lacking with full extension and is to about 100 with flexion. Denies numbness, tingling or other associated symptoms.states she is still walking abnormal and has been having more pain. Ortho Exam Left Knee Date of Surgery: 07/18/19 Skin/Wound: Yes healing, No ecchymosis, No erythema, No swelling Homans Sign: No Knee ROM: No ROM-Extension -20 to 0 (lacking 12 ), No ROM-Flexion 0-140 (100) Examination: No med jt line tenderness, No Lat jt line tenderness Stability: NML: Anterior Drawer, NML: Posterior Drawer, NML: Valgus 30, NML: Varus 30 Assessment & Plan Problems 1. Orthopedic aftercare Z47.89 Plan Patient edcuated that since she is still lacking with extension and some flexion it is recommended that she have a manipulation under anesthesia with intra-articular injection. Patient is ok with proceeding with the manipulation. Educated that she will have more pain after this manipulation. Educated to continue with PT 3 times weekly and taking her pain medication so she can gain more ROM. We will proceed with the manipulation on 09/05/19, as she does not want to do it tomorrow for scheduling purposes. Patient may hold off on PT this week to rest prior to manipulation. Follow up 4 weeks from manipulation or sooner if pain, swelling, numbness or associated symptoms, or concerns develop. All questions answered. Patient in agreement of plan. Coding Level of Care Code Global Post Op Diagnoses Orthopedic aftercare Z47.89 I have re-examined the patient. There are no clinical changes since date of exam
[2019-09-05 06:53] VITALS: BP 143/71; PULSE 72; RESP 18; O2SAT 100; BMI 21.1
[2019-09-05] MEDS: Lactated Ringers 1,000 ML 100 ML IV (07:09)
[2019-09-05 07:38] VITALS: BP 143/71; BP 158/76; PULSE 75; RESP 14; TEMP 36.4; O2SAT 96
--- NOTE | 2019-09-05 07:41 | PCM.DC.ORTHO ---
Discharge Diet: No Restrictions Additional Instructions: Weightbearing as tolerated. Encourage full knee extension and flexion immediately. Resume physical therapy immediately. Pain medication as prescribed. May shower. Call with any concerns. Allergies/Adverse Reactions: Allergies No Known Allergies Allergy (Verified 09/05/19 06:47) Medications to take at Discharge Ipratropium [place] 0.06% [ATROVENT NASAL SPRAY] 1 spray NASAL BID PRN PRN 07/01/17 Lorazepam [Ativan] 0.5 mg PO DAILY PRN PRN 07/01/17 Aspirin E.C. [Ecotrin] 81 mg PO DAILY@0800 07/05/17 Multivitamin [Multiple Vitamins] 1 ea PO DAILY 07/05/17 cholecalciferol (vitamin D3) 5,000 unit capsule 5,000 unit PO QHS 12/05/18 Amlodipine [Norvasc] 5 mg PO DAILY 07/11/19 Atorvastatin Calcium [Lipitor] 40 mg PO QHS 07/11/19 Metoprolol Tartrate [Lopressor (beta ja)] 25 mg PO BID 07/11/19 Acetaminophen [Tylenol] 1,000 mg PO Q6H PRN #100 tab 07/19/19 oxycodone 5 mg capsule 5 mg PO Q6H #50 cap 08/14/19 Oxycodone [Oxyir] 5 mg PO Q4H PRN PRN 7 Days #60 tablet 09/05/19 The following prescriptions were given: Oxycodone [Oxyir] 5 mg PO Q4H PRN PRN 7 Days #60 tablet PRN Reason: Pain Or Fever Transmission Status: Sent to [facility] Primary Care Physician: Sen Verduzco MD [Primary Care Provider] - Test Results: Test results from this visit will be discussed in further detail at your follow-up appointment, if applicable. Please Follow Up With: Estrada Wilkinson DO - 2 weeks
--- NOTE | 2019-09-05 07:42 | OP.PCM_ITS ---
Report of Operation Date of Procedure: 09/05/19 Description of Surgical Findings:: Preoperative diagnosis: Arthrofibrosis left knee Postoperative diagnosis: Same Procedure: Manipulation under anesthesia with intra-articular steroid injection Anesthesia: General EBL: None Complications: None Condition: Able to PACU Indication for procedure: This is a 23-year-old female who underwent total knee arthroplasty approximately 6 weeks ago who is failed to gain her range of motion wish to undergo an elective manipulation under anesthesia to increase range of motion. risk benefits and alternatives were reviewed including risk of bleeding infection nerve, artery, bone, tissue damage, blood clot need for further surg shawn and continued pain. Procedure: Patient was met in the preoperative holding area once again the operative extremity was identified by both patient and physician and was marked. Patient was brought back to the operating room anesthesia was started. A timeout was called into the proper patient procedure and extremity were being contemplated. The operative range of motion was lacking 8 degrees of extension and achieving 95 degrees flexion. After patient was adequately anesthetized extension manipulation was performed followed by patellar mobilization followed by gradual flexion scar tissue was palpated being released with no concerning signs for tendon rupture or fracture. Postoperative range of motion was much improved with near full extension and 135 degrees of flexion.
[2019-09-05 07:45] VITALS: BP 128/89; BP 143/71; PULSE 75; RESP 16; O2SAT 98
[2019-09-05 08:01] VITALS: BP 143/71; BP 150/79; PULSE 70; RESP 16; TEMP 37.2; O2SAT 98
[2019-09-05 08:23] VITALS: BP 143/71
== END 2019-09-05 08:27 | disposition home or self-care (01) ==
LOC: SDC 06:01 → AC 06:02
PROVIDERS: Family Provider Family Medicine; PCP Family Medicine; Referring Provider Orthopaedic Surgery; Visit Provider Orthopaedic Surgery
PROC: (CPT 27570; principal; 2019-09-05 07:25)
DX: M24.662 Ankylosis, left knee (principal); I10 Essential (primary) hypertension; I25.2 Old myocardial infarction; I25.10 Atherosclerotic heart disease of native coronary artery without angina pectoris; E78.5 Hyperlipidemia, unspecified; G47.30 Sleep apnea, unspecified; Z96.652 Presence of left artificial knee joint; Z95.5 Presence of coronary angioplasty implant and graft; Z79.82 Long term (current) use of aspirin; Z79.899 Other long term (current) drug therapy
CPT/HCPCS: 01380; 27570; J7120

== ENCOUNTER → 2020-04-09 09:11 | Outpatient (CLI) | payer MEDICARE, SELFPAY ==
[2020-01-29 12:46] VITALS: BMI 20.6
--- NOTE | 2020-04-09 09:18 | RAD_ITS ---
STUDY: X-RAY - LUMBAR SPINE REASON FOR EXAM: Female, 74 years old. Lower back pain, pain increasing TECHNIQUE: 5 view(s) of the lumbar spine were obtained. COMPARISON: 05/31/2019 FINDINGS: Normal lumbar lordosis. Stable rotatory scoliosis. There is a normal alignment of the vertebrae in the lateral view. There is multilevel endplate spondylosis of the lumbar vertebrae. There is multi-level degenerative disc disease with multi-level disc space narrowing. There is no demonstrated fracture. The soft tissue structures are unremarkable. RAD/L/S Spine Min 4 Views IMPRESSION: Degenerative changes of the spine, as detailed above. No acute fracture or significant interval change. Stable rotatory scoliosis Electronically Signed: Jong Bryson MD at 9:34 EDT , Service support ,
== END ==
PROVIDERS: PCP Family Medicine; Referring Provider Family Medicine; Visit Provider Family Medicine
DX: M54.5 Low back pain (principal); M51.36 Other intervertebral disc degeneration, lumbar region
CPT/HCPCS: 72110

== ENCOUNTER → 2020-07-23 09:36 | Outpatient (CLI) | payer MEDICARE, OTHER, SELFPAY ==
[2020-07-22 07:44] VITALS: BMI 20.6
[2020-07-23 12:29] LABS: AST(SGOT) 17 U/L (15-37); Alanine Aminotransfer ALT/SGPT 19 U/L (13-56); Albumin, Serum 3.3 g/dL (3.2-5.0); Alkaline Phosphatase 58 U/L (45-117); Bilirubin, Direct 0.23 mg/dL (0.00-0.30); Cholesterol 217 mg/dL (200); High Density Lipoprotein 111 mg/dL; Protein, Total 7.3 g/dL (6.4-8.2); Triglycerides 85 mg/dL; Very Low Density Lipoprotein 17 mg/dL (5-40)
== END ==
PROVIDERS: PCP Family Medicine; Visit Provider Internal Medicine Cardiovascular Disease
DX: E78.5 Hyperlipidemia, unspecified (principal); I25.10 Atherosclerotic heart disease of native coronary artery without angina pectoris
CPT/HCPCS: 36415; 80061; 80076

== ENCOUNTER → 2020-12-11 11:54 | Outpatient (CLI) | payer MEDICARE, SELFPAY ==
[2020-12-11 10:27] VITALS: BMI 22.8
[2020-12-11 15:12] LABS: Absolute Lymphocyte Count 1.52 X10^3/uL (0.83-4.51); Absolute Neutrophil Count 3.5 X10^3/uL (2.0-7.7); Basophil# 0.02 X10^3/uL; Basophil% 0.4 % (0-1); Eosinophil# 0.14 X10^3/uL; Eosinophils% 2.5 % (0-5); Hematocrit 44.3 % (37-47); Lymphocyte # 1.52 X10^3/ul (4.0); Lymphocyte % 26.6 % (19-41); Mean Corp Hgb Conc 31.6 g/dL (32-36); Mean Corpuscular Hgb 31.3 pg (27.0-32.0); Mean Corpuscular Volume 99.1 fL (81-99); Mean Platelet Vol. 11.1 fl (6.2-12.0); Monocyte# 0.52 X10^3/uL; Monocyte% 9.1 % (0-10); NRBC Flagged by Analyzer 0 % (0-5); Neutrophil % 61.2 % (47-70); Platelet Count 225 K/mm3 (150-450); RBC Distribution Width CV 13.2 % (11.6-14.6); RBC Distribution Width SD 48.9 fl (35.1-43.9); Red Blood Count 4.47 M/mm3 (4.2-5.4); White Blood Count 5.7 K/mm3 (4.4-11.0)
[2020-12-11 15:36] LABS: ALB/GLOB Ratio 0.9 RATIO (0.9-2.4); AST(SGOT) 14 U/L (15-37); Alanine Aminotransfer ALT/SGPT 20 U/L (13-56); Albumin, Serum 3.7 g/dL (3.2-5.0); Alkaline Phosphatase 62 U/L (45-117); Anion Gap 5 (5-15); BUN 19 mg/dL (7-18); BUN/Creat Ratio 25.3 RATIO (10-20); Calcium,Total 9.1 mg/dL (8.5-10.1); Chloride 109 mmol/L (98-107); Cholesterol 261 mg/dL (200); Creatinine, Serum 0.75 mg/dL (0.55-1.02); EST Glomerular Filtration Rate 80 mL/min (>60); Est Glom Filt Rate - Afr Amer 96 mL/min (>60); Glucose 89 mg/dL (74-106); High Density Lipoprotein 133 mg/dL; Protein, Total 7.7 g/dL (6.4-8.2); Sodium Level 143 mmol/L (136-145); Thyroid Stim Hormone (TSH) 4.61 uIU/mL (0.358-3.74); Triglycerides 69 mg/dL; Very Low Density Lipoprotein 14 mg/dL (5-40)
[2020-12-12 11:17] LABS: Free T3 2.3 pg/mL (2.18-3.98); T4 Free Direct 0.97 ng/dL (0.76-1.46)
== END ==
PROVIDERS: PCP Internal Medicine; Referring Provider Internal Medicine; Visit Provider Internal Medicine
DX: E55.9 Vitamin D deficiency, unspecified (principal); I10 Essential (primary) hypertension; E78.5 Hyperlipidemia, unspecified; I25.10 Atherosclerotic heart disease of native coronary artery without angina pectoris; R79.89 Other specified abnormal findings of blood chemistry; Z95.5 Presence of coronary angioplasty implant and graft
CPT/HCPCS: 36415; 80053; 80061; 82306; 84439; 84443; 84481; 85025

== ENCOUNTER → 2021-01-29 10:51 | Outpatient (CLI) | payer MEDICARE, SELFPAY ==
[2020-12-11 10:27] VITALS: BMI 22.8
[2021-01-29 11:53] LABS: AST(SGOT) 14 U/L (15-37); Alanine Aminotransfer ALT/SGPT 16 U/L (13-56); Albumin, Serum 3.5 g/dL (3.2-5.0); Alkaline Phosphatase 59 U/L (45-117); Bilirubin, Direct 0.31 mg/dL (0.00-0.30); Cholesterol 234 mg/dL (200); High Density Lipoprotein 136 mg/dL; Protein, Total 7.5 g/dL (6.4-8.2); Triglycerides 61 mg/dL; Very Low Density Lipoprotein 12 mg/dL (5-40)
== END ==
PROVIDERS: PCP Internal Medicine; Referring Provider Internal Medicine Cardiovascular Disease; Visit Provider Internal Medicine Cardiovascular Disease
DX: E78.00 Pure hypercholesterolemia, unspecified (principal); E78.5 Hyperlipidemia, unspecified
CPT/HCPCS: 36415; 80061; 80076

== ENCOUNTER → 2021-06-11 11:09 | Outpatient (CLI) | payer MEDICARE, SELFPAY ==
[2021-06-11 13:04] LABS: Free T3 2.3 pg/mL (2.18-3.98); T4 Free Direct 0.94 ng/dL (0.76-1.46); Thyroid Stim Hormone (TSH) 3.37 uIU/mL (0.358-3.74)
== END ==
PROVIDERS: PCP Internal Medicine; Referring Provider Internal Medicine; Visit Provider Internal Medicine
DX: R94.6 Abnormal results of thyroid function studies (principal); R79.89 Other specified abnormal findings of blood chemistry
CPT/HCPCS: 36415; 84439; 84443; 84481

== ENCOUNTER → 2021-08-04 10:37 | Outpatient (CLI) | payer MEDICARE, SELFPAY ==
[2021-08-04 12:16] LABS: AST(SGOT) 17 U/L (15-37); Alanine Aminotransfer ALT/SGPT 17 U/L (13-56); Alkaline Phosphatase 55 U/L (45-117); Bilirubin, Direct 0.26 mg/dL (0.00-0.30); Cholesterol 207 mg/dL (200); Globulin 4.1 g/dL (2.2-4.2); High Density Lipoprotein 111 mg/dL; Protein, Total 7.1 g/dL (6.4-8.2); Triglycerides 57 mg/dL; Very Low Density Lipoprotein 11 mg/dL (5-40)
== END ==
PROVIDERS: PCP Internal Medicine; Visit Provider Internal Medicine Cardiovascular Disease
DX: E78.00 Pure hypercholesterolemia, unspecified (principal); E78.5 Hyperlipidemia, unspecified
CPT/HCPCS: 36415; 80061; 80076

== ENCOUNTER 2021-12-10 11:33 | Outpatient (CLI) | payer MEDICARE, SELFPAY ==
[2021-12-10 12:17] LABS: Absolute Lymphocyte Count 1.41 X10^3/uL (0.83-4.51); Absolute Neutrophil Count 3.7 X10^3/uL (2.0-7.7); Basophil# 0.04 X10^3/uL; Basophil% 0.7 % (0-1); Eosinophil# 0.15 X10^3/uL; Eosinophils% 2.6 % (0-5); Hematocrit 42.5 % (37-47); Hemoglobin 13.7 g/dL (12.0-15.0); Lymphocyte # 1.41 X10^3/ul (0.83-4.51); Lymphocyte % 24.1 % (19-41); Mean Corp Hgb Conc 32.2 g/dL (32-36); Mean Corpuscular Hgb 31.1 pg (27.0-32.0); Mean Corpuscular Volume 96.6 fL (81-99); Mean Platelet Vol. 11.2 fl (6.2-12.0); Monocyte# 0.56 X10^3/uL; Monocyte% 9.6 % (0-10); NRBC Flagged by Analyzer 0 % (0-5); Neutrophil # 3.67 X10^3/uL (2.7-7.7); Neutrophil % 62.8 % (47-70); Platelet Count 200 K/mm3 (150-450); RBC Distribution Width CV 13.7 % (11.6-14.6); RBC Distribution Width SD 49.1 fl (35.1-43.9); White Blood Count 5.8 K/mm3 (4.4-11.0)
[2021-12-10 12:53] LABS: ALB/GLOB Ratio 0.8 RATIO (0.9-2.4); AST(SGOT) 17 U/L (15-37); Alanine Aminotransfer ALT/SGPT 13 U/L (13-56); Albumin, Serum 3.4 g/dL (3.2-5.0); Alkaline Phosphatase 59 U/L (45-117); Anion Gap 5 (5-15); BUN 22 mg/dL (7-18); BUN/Creat Ratio 30.2 RATIO (10-20); Calcium,Total 9.4 mg/dL (8.5-10.1); Chloride 109 mmol/L (98-107); Cholesterol 208 mg/dL (200); Creatinine, Serum 0.73 mg/dL (0.55-1.02); EST Glomerular Filtration Rate 82 mL/min (>60); Est Glom Filt Rate - Afr Amer 100 mL/min (>60); Free T3 2.2 pg/mL (2.18-3.98); Globulin 4.1 g/dL (2.2-4.2); Glucose 91 mg/dL (74-106); High Density Lipoprotein 114 mg/dL; Potassium 3.8 mmol/L (3.5-5.1); Protein, Total 7.5 g/dL (6.4-8.2); Sodium Level 141 mmol/L (136-145); T4 Free Direct 0.95 ng/dL (0.76-1.46); Thyroid Stim Hormone (TSH) 5.37 uIU/mL (0.358-3.74); Triglycerides 69 mg/dL; Very Low Density Lipoprotein 14 mg/dL (5-40)
== END 2021-12-10 23:59 | disposition home or self-care (01) ==
LOC: BIMLAB 11:34
PROVIDERS: PCP Internal Medicine; Referring Provider Internal Medicine; Visit Provider Internal Medicine
DX: R79.89 Other specified abnormal findings of blood chemistry (principal); I25.10 Atherosclerotic heart disease of native coronary artery without angina pectoris; I25.2 Old myocardial infarction; I10 Essential (primary) hypertension; E78.5 Hyperlipidemia, unspecified; M54.9 Dorsalgia, unspecified; G89.29 Other chronic pain
CPT/HCPCS: 36415; 80053; 80061; 84439; 84443; 84481; 85025

== ENCOUNTER 2021-12-11 14:26 | Outpatient (CLI) | payer MEDICARE, SELFPAY ==
[2021-12-15 21:07] LABS: Thyroid Peroxidase AB < 8 IU/mL (0-34)
[2021-12-15 21:13] LABS: Thyroglobulin Antibody < 1.0 IU/mL (0.0-0.9)
== END 2021-12-11 23:59 | disposition home or self-care (01) ==
LOC: BIMLAB 14:26
PROVIDERS: PCP Internal Medicine; Referring Provider Internal Medicine; Visit Provider Internal Medicine
DX: R79.89 Other specified abnormal findings of blood chemistry (principal)
CPT/HCPCS: 36415; 86376; 86800

== ENCOUNTER → 2022-05-27 | Outpatient (CLI) | payer MEDICARE, SELFPAY ==
[2022-05-27 11:23] LABS: Absolute Lymphocyte Count 1.55 X10^3/uL (0.83-4.51); Absolute Neutrophil Count 3.7 X10^3/uL (2.0-7.7); Basophil# 0.04 X10^3/uL; Basophil% 0.7 % (0-1); Eosinophil# 0.13 X10^3/uL; Eosinophils% 2.2 % (0-5); Hematocrit 41.8 % (37-47); Hemoglobin 13.6 g/dL (12.0-15.0); Lymphocyte # 1.55 X10^3/ul (0.83-4.51); Lymphocyte % 25.7 % (19-41); Mean Corp Hgb Conc 32.5 g/dL (32-36); Mean Corpuscular Hgb 32.1 pg (27.0-32.0); Mean Corpuscular Volume 98.6 fL (81-99); Mean Platelet Vol. 10.5 fl (6.2-12.0); Monocyte% 9.9 % (0-10); NRBC Flagged by Analyzer 0 % (0-5); Neutrophil % 61.2 % (47-70); Platelet Count 207 K/mm3 (150-450); RBC Distribution Width CV 13.6 % (11.6-14.6); RBC Distribution Width SD 50.3 fl (35.1-43.9); Red Blood Count 4.24 M/mm3 (4.2-5.4)
[2022-05-27 11:48] LABS: Vitamin D,25 Hydroxy 90.4 ng/mL
[2022-05-27 11:54] LABS: ALB/GLOB Ratio 0.9 RATIO (0.9-2.4); AST(SGOT) 13 U/L (15-37); Alanine Aminotransfer ALT/SGPT 14 U/L (13-56); Albumin, Serum 3.5 g/dL (3.2-5.0); Alkaline Phosphatase 48 U/L (45-117); Anion Gap 5 (5-15); BUN 24 mg/dL (7-18); BUN/Creat Ratio 32.4 RATIO (10-20); Calcium,Total 9.2 mg/dL (8.5-10.1); Chloride 108 mmol/L (98-107); Cholesterol 229 mg/dL (200); Creatinine, Serum 0.74 mg/dL (0.55-1.02); EST Glomerular Filtration Rate 81 mL/min (>60); Est Glom Filt Rate - Afr Amer 98 mL/min (>60); Free T3 2.4 pg/mL (2.18-3.98); Globulin 3.7 g/dL (2.2-4.2); Glucose 95 mg/dL (74-106); High Density Lipoprotein 119 mg/dL; Potassium 3.6 mmol/L (3.5-5.1); Protein, Total 7.2 g/dL (6.4-8.2); Sodium Level 142 mmol/L (136-145); T4 Free Direct 0.93 ng/dL (0.76-1.46); Thyroid Stim Hormone (TSH) 4.16 uIU/mL (0.358-3.74); Triglycerides 73 mg/dL; Very Low Density Lipoprotein 15 mg/dL (5-40)
== END | disposition home or self-care (01) ==
LOC: LAB 11:11
PROVIDERS: PCP Internal Medicine; Visit Provider Internal Medicine
DX: I10 Essential (primary) hypertension (principal); R79.89 Other specified abnormal findings of blood chemistry; I25.10 Atherosclerotic heart disease of native coronary artery without angina pectoris; E78.5 Hyperlipidemia, unspecified; E55.9 Vitamin D deficiency, unspecified
CPT/HCPCS: 36415; 80053; 80061; 82306; 84439; 84443; 84481; 85025

== ENCOUNTER → 2022-11-17 | Outpatient (CLI) | payer MEDICARE, SELFPAY ==
[2022-11-17 11:33] LABS: AST(SGOT) 17 U/L (15-37); Alanine Aminotransfer ALT/SGPT 19 U/L (13-56); Albumin, Serum 3.6 g/dL (3.2-5.0); Alkaline Phosphatase 53 U/L (45-117); Bilirubin, Direct 0.33 mg/dL (0.00-0.30); Cholesterol 237 mg/dL (200); Globulin 3.6 g/dL (2.2-4.2); High Density Lipoprotein 126 mg/dL; Protein, Total 7.2 g/dL (6.4-8.2); Triglycerides 67 mg/dL; Very Low Density Lipoprotein 13 mg/dL (5-40)
[2022-11-17 11:41] LABS: Free T3 2.3 pg/mL (2.18-3.98); T4 Free Direct 1.03 ng/dL (0.76-1.46); Thyroid Stim Hormone (TSH) 6.19 uIU/mL (0.358-3.74)
== END | disposition home or self-care (01) ==
LOC: LAB 10:00
PROVIDERS: PCP Internal Medicine; Visit Provider Internal Medicine Cardiovascular Disease
DX: R79.89 Other specified abnormal findings of blood chemistry (principal); E78.00 Pure hypercholesterolemia, unspecified
CPT/HCPCS: 36415; 80061; 80076; 84439; 84443; 84481

== ENCOUNTER → 2022-12-17 | Outpatient (CLI) | payer MEDICARE, SELFPAY ==
[2022-12-17 10:22] LABS: Absolute Lymphocyte Count 1.66 X10^3/uL (0.83-4.51); Absolute Neutrophil Count 3.5 X10^3/uL (2.0-7.7); Basophil# 0.04 X10^3/uL; Basophil% 0.7 % (0-1); Eosinophil# 0.16 X10^3/uL; Eosinophils% 2.7 % (0-5); Hematocrit 42.3 % (37-47); Hemoglobin 13.8 g/dL (12.0-15.0); Lymphocyte # 1.66 X10^3/ul (0.83-4.51); Lymphocyte % 27.6 % (19-41); Mean Corp Hgb Conc 32.6 g/dL (32-36); Mean Corpuscular Volume 98.1 fL (81-99); Mean Platelet Vol. 10.6 fl (6.2-12.0); Monocyte# 0.62 X10^3/uL; Monocyte% 10.3 % (0-10); NRBC Flagged by Analyzer 0 % (0-5); Neutrophil # 3.53 X10^3/uL (2.7-7.7); Neutrophil % 58.5 % (47-70); Platelet Count 205 K/mm3 (150-450); RBC Distribution Width CV 13.2 % (11.6-14.6); RBC Distribution Width SD 47.8 fl (35.1-43.9); Red Blood Count 4.31 M/mm3 (4.2-5.4)
[2022-12-17 10:53] LABS: Vitamin B12 1078 pg/mL (211-911); Vitamin D,25 Hydroxy 73.7 ng/mL
[2022-12-17 11:01] LABS: ALB/GLOB Ratio 0.8 RATIO (0.9-2.4); AST(SGOT) 13 U/L (15-37); Alanine Aminotransfer ALT/SGPT 15 U/L (13-56); Albumin, Serum 3.4 g/dL (3.2-5.0); Alkaline Phosphatase 55 U/L (45-117); Anion Gap 4 (5-15); BUN 24 mg/dL (7-18); BUN/Creat Ratio 30.7 RATIO (10-20); Calcium,Total 9.3 mg/dL (8.5-10.1); Chloride 107 mmol/L (98-107); Cholesterol 231 mg/dL (200); Creatinine, Serum 0.78 mg/dL (0.55-1.02); EST Glomerular Filtration Rate 76 mL/min (>60); Est Glom Filt Rate - Afr Amer 92 mL/min (>60); Free T3 2.3 pg/mL (2.18-3.98); Glucose 96 mg/dL (74-106); High Density Lipoprotein 123 mg/dL; Potassium 3.6 mmol/L (3.5-5.1); Protein, Total 7.4 g/dL (6.4-8.2); Sodium Level 143 mmol/L (136-145); T4 Free Direct 1.09 ng/dL (0.76-1.46); Thyroid Stim Hormone (TSH) 4.18 uIU/mL (0.358-3.74); Triglycerides 51 mg/dL; Very Low Density Lipoprotein 10 mg/dL (5-40)
[2022-12-17 11:17] LABS: Hemoglobin A1c 5.1 % (3.8-5.6)
== END | disposition home or self-care (01) ==
LOC: LAB 09:43
PROVIDERS: PCP Internal Medicine; Referring Provider Internal Medicine; Visit Provider Internal Medicine
DX: E03.9 Hypothyroidism, unspecified (principal); I25.10 Atherosclerotic heart disease of native coronary artery without angina pectoris; I10 Essential (primary) hypertension; E78.5 Hyperlipidemia, unspecified; E53.8 Deficiency of other specified B group vitamins; E55.9 Vitamin D deficiency, unspecified; Z13.220 Encounter for screening for lipoid disorders; R73.9 Hyperglycemia, unspecified
CPT/HCPCS: 36415; 80053; 80061; 82306; 82607; 83036; 84439; 84443; 84481; 85025

== ENCOUNTER → 2023-04-19 | Outpatient (CLI) | payer MEDICARE, SELFPAY ==
[2023-04-19 08:57] LABS: AST(SGOT) 11 U/L (15-37); Alanine Aminotransfer ALT/SGPT 16 U/L (13-56); Albumin, Serum 3.2 g/dL (3.2-5.0); Alkaline Phosphatase 46 U/L (45-117); Cholesterol 227 mg/dL (200); Globulin 3.8 g/dL (2.2-4.2); High Density Lipoprotein 119 mg/dL; Triglycerides 71 mg/dL; Very Low Density Lipoprotein 14 mg/dL (5-40)
== END | disposition home or self-care (01) ==
LOC: LAB 07:32
PROVIDERS: PCP Internal Medicine; Referring Provider Internal Medicine Cardiovascular Disease; Visit Provider Internal Medicine Cardiovascular Disease
DX: E78.00 Pure hypercholesterolemia, unspecified (principal)
CPT/HCPCS: 36415; 80061; 80076

== ENCOUNTER → 2023-06-02 | Outpatient (CLI) | payer MEDICARE, SELFPAY ==
[2023-06-02 13:20] LABS: Absolute Lymphocyte Count 1.79 X10^3/uL (0.83-4.51); Absolute Neutrophil Count 4.1 X10^3/uL (2.0-7.7); Basophil# 0.04 X10^3/uL; Basophil% 0.6 % (0-1); Eosinophils% 1.5 % (0-5); Hematocrit 42.5 % (37-47); Hemoglobin 13.7 g/dL (12.0-15.0); Lymphocyte # 1.79 X10^3/ul (0.83-4.51); Lymphocyte % 27.4 % (19-41); Mean Corp Hgb Conc 32.2 g/dL (32-36); Mean Corpuscular Hgb 32.2 pg (27.0-32.0); Mean Corpuscular Volume 99.8 fL (81-99); Mean Platelet Vol. 10.8 fl (6.2-12.0); Monocyte# 0.53 X10^3/uL; Monocyte% 8.1 % (0-10); NRBC Flagged by Analyzer 0 % (0-5); Neutrophil # 4.05 X10^3/uL (2.7-7.7); Neutrophil % 62.1 % (47-70); Platelet Count 219 K/mm3 (150-450); RBC Distribution Width CV 13.9 % (11.6-14.6); RBC Distribution Width SD 51.1 fl (35.1-43.9); Red Blood Count 4.26 M/mm3 (4.2-5.4); White Blood Count 6.5 K/mm3 (4.4-11.0)
[2023-06-02 13:45] LABS: Vitamin B12 1044 pg/mL (211-911); Vitamin D,25 Hydroxy 103.4 ng/mL
[2023-06-02 14:02] LABS: ALB/GLOB Ratio 0.8 RATIO (0.9-2.4); AST(SGOT) 17 U/L (15-37); Alanine Aminotransfer ALT/SGPT 18 U/L (13-56); Albumin, Serum 3.4 g/dL (3.2-5.0); Alkaline Phosphatase 52 U/L (45-117); Anion Gap 5 (5-15); BUN 30 mg/dL (7-18); BUN/Creat Ratio 40.4 RATIO (10-20); Calcium,Total 9.1 mg/dL (8.5-10.1); Chloride 107 mmol/L (98-107); Cholesterol 226 mg/dL (200); Creatinine, Serum 0.74 mg/dL (0.55-1.02); EST Glomerular Filtration Rate 80 mL/min (>60); Est Glom Filt Rate - Afr Amer 97 mL/min (>60); Free T3 2.2 pg/mL (2.18-3.98); Glucose 107 mg/dL (74-106); High Density Lipoprotein 119 mg/dL; Protein, Total 7.4 g/dL (6.4-8.2); Sodium Level 142 mmol/L (136-145); Thyroid Stim Hormone (TSH) 2.12 uIU/mL (0.358-3.74); Triglycerides 61 mg/dL; Very Low Density Lipoprotein 12 mg/dL (5-40)
== END | disposition home or self-care (01) ==
PROVIDERS: PCP Internal Medicine; Referring Provider Internal Medicine; Visit Provider Internal Medicine
DX: I10 Essential (primary) hypertension (principal); E55.9 Vitamin D deficiency, unspecified; E03.9 Hypothyroidism, unspecified; E78.5 Hyperlipidemia, unspecified
CPT/HCPCS: 36415; 80053; 80061; 82306; 82607; 84439; 84443; 84481; 85025

== ENCOUNTER → 2023-10-20 | Outpatient (CLI) | payer MEDICARE, SELFPAY ==
[2023-10-20 11:50] LABS: AST(SGOT) 13 U/L (15-37); Alanine Aminotransfer ALT/SGPT 39 U/L (13-56); Albumin, Serum 3.5 g/dL (3.2-5.0); Alkaline Phosphatase 56 U/L (45-117); Bilirubin, Direct 0.28 mg/dL (0.00-0.30); Cholesterol 218 mg/dL (200); Globulin 3.8 g/dL (2.2-4.2); High Density Lipoprotein 121 mg/dL; Protein, Total 7.3 g/dL (6.4-8.2); Triglycerides 57 mg/dL; Very Low Density Lipoprotein 11 mg/dL (5-40)
== END | disposition home or self-care (01) ==
LOC: LAB 09:39
PROVIDERS: PCP Internal Medicine; Referring Provider Nurse Practitioner Gerontology; Visit Provider Nurse Practitioner Gerontology
DX: E78.00 Pure hypercholesterolemia, unspecified (principal)
CPT/HCPCS: 36415; 80061; 80076

== ENCOUNTER → 2023-12-07 | Outpatient (CLI) | payer MEDICARE, SELFPAY ==
--- NOTE | 2023-12-07 13:55 | ECHOD_ITS ---
Reason For Study: Murmur, CAD Procedure This was a 2D Doppler, Color Flow transthoracic echocardiogram. Exam performed in department. Left Ventricle Normal LV size. Left ventricular systolic function is normal. The estimated ejection fraction is 60 %. Stage 1 diastolic dysfunction. No regional wall motion abnormalities noted. Right Ventricle Normal RV size. Normal systolic function. Atria Normal left atrium. Normal right atrium. Mitral Valve Bileaflet diffuse mitral valve thickening. Mild (1+) eccentric mitral valve insufficiency. Tricuspid Valve Normal tricuspid valve. Mild (1+) tricuspid valve insufficiency. Pulmonary artery systolic pressure is 29 mmHg. Aortic Valve Trisinus/trileaflet aortic valve. Mild focal aortic valve calcification. Mild (1+) aortic valve insufficiency. Pulmonic Valve Normal pulmonic valve. Great Vessels Normal aortic root. The pulmonary artery is normal size. Normal inferior vena cava. Pericardium/Pleural No pericardial effusion. MMode/2D Measurements & Calculations LVIDd: 4.2 cm IVSd: 1.0 cm Ao root diam: 3.1 cm LVIDs: 3.3 cm LVPWd: 1.0 cm RVDd: 3.1 cm FS: 21.7 % LAV(MOD-bp): 38.9 ml LVAd ap4: 28.2 cm2 LVAd ap2: 29.0 cm2 LAV(MOD-bp) Indexed: 26.9 ml/m2 LVLd ap4: 7.7 cm LVLd ap2: 8.0 cm LAV(MOD-sp2): 37.5 ml EDV(MOD-sp4): 83.9 ml EDV(MOD-sp2): 86.2 ml LAV(MOD-sp4): 40.4 ml EDV(sp4-el): 87.5 ml EDV(sp2-el): 88.7 ml LVAs ap4: 17.9 cm2 LVAs ap2: 16.6 cm2 LVLs ap4: 6.5 cm LVLs ap2: 6.9 cm ESV(MOD-sp4): 41.2 ml ESV(MOD-sp2): 34.0 ml ESV(sp4-el): 41.9 ml ESV(sp2-el): 33.5 ml EF(MOD-sp4): 50.9 % EF(MOD-sp2): 60.6 % EF(sp4-el): 52.1 % SV(MOD-sp4): 42.7 ml SV(MOD-sp2): 52.3 ml SV(sp4-el): 45.6 ml LA dimension(2D): 2.8 cm LA A4 area: 15.8 cm2 RA A4 area: 10.7 cm2 TAPSE: 2.7 cm Time Measurements MV dec time: 0.15 sec Doppler Measurements & Calculations MV E max kar: 83.6 cm/sec Lat Peak E' Kar: 5.5 cm/sec Med Peak E' Kar: 5.4 cm/sec MV A max kar: 108.5 cm/sec E/E' lat: 15.1 E/E' med: 15.5 MV E/A: 0.77 MV dec slope: 546.4 cm/sec2 Ao V2 max: 191.0 cm/sec AI max kar: 443.9 cm/sec Ao max P.6 mmHg AI max P.9 mmHg Ao V2 mean: 138.5 cm/sec AI dec slope: 249.4 cm/sec2 Ao mean P.6 mmHg AI P1/2t: 521.4 msec Ao V2 VTI: 43.9 cm AV (velocity ratio): 0.67 LV V1 max: 130.6 cm/sec PA V2 max: 136.7 cm/sec TR max kar: 247.6 cm/sec LV V1 max P.8 mmHg TR max P.5 mmHg LV V1 mean P.2 mmHg LV V1 mean: 95.7 cm/sec LV V1 VTI: 29.5 cm ECHO/Echo Complete Interpretation Summary Normal LV size. Left ventricular systolic function is normal. The estimated ejection fraction is 60 %. Mild (1+) eccentric mitral valve insufficiency. Mild focal aortic valve calcification. Stage 1 diastolic dysfunction. Ordering Physician: Diego Lua Referring Physician: Kaylynn Sims Performed By: Cheryl Kaur RDCS
== END | disposition home or self-care (01) ==
PROVIDERS: PCP Internal Medicine; Referring Provider Internal Medicine Cardiovascular Disease; Visit Provider Internal Medicine Cardiovascular Disease
DX: I49.49 Other premature depolarization (principal)
CPT/HCPCS: 93306

== ENCOUNTER → 2024-04-15 | Outpatient (CLI) | payer MEDICARE, SELFPAY ==
[2024-04-15 12:21] LABS: AST(SGOT) 11 U/L (15-37); Alanine Aminotransfer ALT/SGPT 17 U/L (13-56); Albumin, Serum 3.5 g/dL (3.2-5.0); Alkaline Phosphatase 52 U/L (45-117); Cholesterol 202 mg/dL (200); Globulin 3.8 g/dL (2.2-4.2); High Density Lipoprotein 118 mg/dL; Protein, Total 7.3 g/dL (6.4-8.2); Triglycerides 55 mg/dL; Very Low Density Lipoprotein 11 mg/dL (5-40)
== END | disposition home or self-care (01) ==
LOC: LAB 11:17
PROVIDERS: PCP Internal Medicine; Referring Provider Nurse Practitioner Gerontology; Visit Provider Nurse Practitioner Gerontology
DX: E78.00 Pure hypercholesterolemia, unspecified (principal)
CPT/HCPCS: 36415; 80061; 80076

== ENCOUNTER → 2024-06-07 | Outpatient (CLI) | payer MEDICARE, SELFPAY ==
[2024-06-07 17:19] LABS: Anion Gap 3 (5-15); BUN 38 mg/dL (7-18); BUN/Creat Ratio 41.9 RATIO (10-20); Calcium,Total 9.3 mg/dL (8.5-10.1); Chloride 105 mmol/L (98-107); Creatinine, Serum 0.91 mg/dL (0.55-1.02); EST Glomerular Filtration Rate 63 mL/min (>60); Est Glom Filt Rate - Afr Amer 77 mL/min (>60); Free T3 2.1 pg/mL (2.18-3.98); Glucose 133 mg/dL (74-106); Potassium 3.8 mmol/L (3.5-5.1); Sodium Level 143 mmol/L (136-145)
== END | disposition home or self-care (01) ==
LOC: LAB 16:03
PROVIDERS: PCP Internal Medicine; Referring Provider Internal Medicine; Visit Provider Internal Medicine
DX: E03.9 Hypothyroidism, unspecified (principal); I10 Essential (primary) hypertension; E78.5 Hyperlipidemia, unspecified; E55.9 Vitamin D deficiency, unspecified
CPT/HCPCS: 36415; 80048; 82306; 84439; 84443; 84481

== ENCOUNTER → 2024-10-23 | Outpatient (CLI) | payer MEDICARE, SELFPAY ==
[2024-10-23 12:14] LABS: AST(SGOT) 15 U/L (15-37); Alanine Aminotransfer ALT/SGPT 13 U/L (13-56); Albumin, Serum 3.3 g/dL (3.2-5.0); Alkaline Phosphatase 54 U/L (45-117); Bilirubin, Direct 0.27 mg/dL (0.00-0.30); Cholesterol 202 mg/dL (200); Globulin 3.9 g/dL (2.2-4.2); High Density Lipoprotein 126 mg/dL; Protein, Total 7.2 g/dL (6.4-8.2); Triglycerides 49 mg/dL; Very Low Density Lipoprotein 10 mg/dL (5-40)
== END | disposition home or self-care (01) ==
LOC: LAB 11:12
PROVIDERS: PCP Internal Medicine; Referring Provider Nurse Practitioner Gerontology; Visit Provider Nurse Practitioner Gerontology
DX: E78.00 Pure hypercholesterolemia, unspecified (principal)
CPT/HCPCS: 36415; 80061; 80076

== ENCOUNTER → 2025-05-04 | Outpatient (CLI) | payer MEDICARE, SELFPAY ==
[2025-05-04 12:20] LABS: AST(SGOT) 21 U/L (<=31); Alanine Aminotransfer ALT/SGPT 22 U/L (<=34); Albumin, Serum 4.3 g/dL (3.4-4.8); Alkaline Phosphatase 61 U/L (35-104); Bilirubin, Direct 0.56 mg/dL (0.00-0.30); Cholesterol 208 mg/dL (<=200); Globulin 2.9 g/dL (2.2-4.2); Low Density Lipoprotein Calc. 87 mg/dL; Triglycerides 73 mg/dL; Very Low Density Lipoprotein 15 mg/dL (5-40); cholesterol:hdl ratio screen 1.96
== END | disposition home or self-care (01) ==
LOC: LAB 09:38
PROVIDERS: PCP Internal Medicine; Referring Provider Physician Assistant Medical; Visit Provider Physician Assistant Medical
DX: E78.00 Pure hypercholesterolemia, unspecified (principal)
CPT/HCPCS: 36415; 80061; 80076

== ENCOUNTER → 2025-08-03 | Outpatient (CLI) | payer MEDICARE, SELFPAY ==
[2025-08-03 11:37] LABS: Hematocrit 38.1 % (37-47); Hemoglobin 12.6 g/dL (12.0-15.0); Immature Granulocytes Count 0.020 X10^3/uL (0.0-0.0); Mean Corp Hgb Conc 33.1 g/dL (32-36); Mean Corpuscular Volume 97.9 fL (81-99); Mean Platelet Vol. 10.9 fl (6.2-12.0); NRBC Flagged by Analyzer 0 % (0-5); Platelet Count 209 K/mm3 (150-450); RBC Distribution Width CV 13.6 % (11.6-14.6); RBC Distribution Width SD 49.1 fl (35.1-43.9); Red Blood Count 3.89 M/mm3 (4.2-5.4); White Blood Count 5.7 K/mm3 (4.4-11.0)
[2025-08-03 12:24] LABS: Anion Gap 10 (5-15); BUN 31 mg/dL (4-19); BUN/Creat Ratio 30.8 RATIO (10-20); Calcium,Total 9.6 mg/dL (7.6-11.0); Carbon Dioxide 28.8 mmol/L (21.0-32.0); Chloride 103 mmol/L (98-108); Glucose 96 mg/dL (70-99); Potassium 3.8 mmol/L (3.3-5.1)
[2025-08-03 12:53] LABS: T3 Total - Triiodothyronine 0.84 ng/mL (0.80-2.00); Vitamin B12 > 4000 pg/mL (180-914); Vitamin D,25 Hydroxy 73.0 ng/mL (30-100)
== END | disposition home or self-care (01) ==
LOC: LAB 10:18
PROVIDERS: PCP Internal Medicine; Referring Provider Internal Medicine; Visit Provider Internal Medicine
DX: E55.9 Vitamin D deficiency, unspecified (principal); I10 Essential (primary) hypertension; E03.9 Hypothyroidism, unspecified; E53.8 Deficiency of other specified B group vitamins
CPT/HCPCS: 36415; 80048; 82306; 82607; 84439; 84443; 84480; 85025

== ENCOUNTER → 2025-09-18 | Outpatient (CLI) | payer MEDICARE, SELFPAY | END | disposition home or self-care (01) | LOC: LAB 11:28 | PROVIDERS: PCP Internal Medicine; Referring Provider Internal Medicine; Visit Provider Internal Medicine | DX: E03.9 Hypothyroidism, unspecified (principal) | CPT/HCPCS: 36415; 84443 ==